=== PATIENT | female | born 1960 | race Caucasian/White ===

== ENCOUNTER → 2016-05-28 | Outpatient (CLI) | payer OTHER ==
[~2016-05-28] VITALS: Ht 188 cm; Wt 104.3 kg
[~2016-05-28] MED LIST: ALLEGRA ALLERG180 MG PO; ATROVENT HFA14 GM NASAL; CENTRUM SILVER1 EAC4 PO; ELIQUIS2.5 MG PO; ESTRADIOL 1 MG T1 M1 PO; FISH OIL 1,001000 M2 PO; HYDROCODONE-AP1 EAC6 PO; LISINOPRIL10 MG PO; MS CONTIN15 MG PO; NEXIUM40 MG PO; NORCO 10-325 T1 EACH PO; RITALIN10 MG PO; SERTRALINE HCL100 MG PO; VOLTAREN GEL 1100 G2 TOP
--- NOTE | ~2016-05-28 | CATHLAB ---
[facility] [employer] [place] [address] INVASIVE PROCEDURE REPORT Name: JOSEPHINE BELTRAN Room #: REG [facility]#: [id number] Admission: 05/28/16 Attend Phys: Leroy Lopes Discharge: Date of : 56 Date of Service: 05/28/16 2047 Report #: [id number] THIS REPORT FOR: //name// CC: Leroy Ayala DATE OF SERVICE: 05/28/2016 PROCEDURES: 1. Left heart catheterization. 2. Selective left and right coronary angiography. 3. Measurement of left ventricular end diastolic pressure. 4. Supervision of conscious sedation. LENDING ADVISOR: Leroy Fernandes MD INDICATION: This is a 56-year-old female patient with irregular heartbeat and abnormal noninvasive perfusion scanning suspicious for ischemia. BRIEF DESCRIPTION OF PROCEDURE: After informed consent was obtained, the patient was brought to the cardiac catheterization laboratory in stable condition. The patient's right groin was prepped and draped in the usual sterile manner after which lidocaine was then instilled. Utilizing a modified Seldinger technique, the right femoral artery was then accessed. Under fluoroscopic visualization using selective coronary catheters, the right and left coronaries were opacified and visualized. The left ventriculogram was likewise imaged per standard protocol with EDP being measured. Subsequent to this, the sheath was removed, hemostasis achieved. The patient tolerated the procedure well. There were no complications. FINDINGS: 1. HEMODYNAMICS: A. Aortic pressure 152/86. B. Left ventricular end diastolic pressures 20 to 24. 2. FLUOROSCOPY: Under fluoroscopic visualization, there was some calcific plaquing along the epicardial coronary arteries. No significant plaquing on the valvular or intramyocardial structures of the heart. 3. ANGIOGRAPHY: This is a right coronary dominant system. A. Left main is of normal origin and caliber, bifurcates to left anterior descending. The left circumflex is free of high grade disease. B. Left anterior descending: This is a small caliber type 1 vessel which has small caliber, courses in the anterior interventricular sulcus giving rise to a small diagonal and septal perforators is free of high grade disease as it terminates well above the apex of the anterior wall. [facility] [address] [place] [address] INVASIVE PROCEDURE REPORT Name: JOSEPHINE BELTRAN Room #: REG [facility]#: [id number] Admission: 05/28/16 Attend Phys: Leroy Lopes Discharge: Date of : 56 Date of Service: 05/28/162046 Report #: [id number] C. Left circumflex is of moderate to large caliber vessel, which courses anterior and laterally towards the apex and terminates in the apical region. It is free of high-grade disease. D. Right coronary artery: This is a large caliber vessel, courses posteriorly, giving rise to posterior descending and posterolateral wall. It is free of significant high-grade disease and has only luminal irregularities. IMPRESSION: 1. Essentially normal coronary arteries. 2. Normal hemodynamics. <ELECTRONICALLY SIGNED> By: Leroy Fernandes MD 05/29/16 1133 2047 0146 Leroy Fernandes MD /nt
[2016-05-28 08:27] LABS: HEMATOCRIT 38.8 % (37.0-47.0); HEMOGLOBIN 12.7 gm/dL (12.0-15.0); MCH 28.2 pg (26.0-34.0); MCHC 32.8 % (28.0-37.0); MCV 85.8 fL (80.0-100.0); RBC 4.52 mil/uL (4.20-5.00); RDW 13.9 % (10.5-14.5); WBC 4.8 thou/uL (4.0-11.0)
[2016-05-28 08:34] VITALS: BP 118/76
[2016-05-28 08:44] LABS: CALCIUM 9.2 mg/dL (8.5-10.1); CREATININE 1.5 mg/dL (0.6-1.3); POTASSIUM 4.4 mmol/L (3.5-5.1)
== END ==
LOC: CATH 07:49
PROVIDERS: Internal Medicine
DX: I34.1 Nonrheumatic mitral (valve) prolapse (principal); I10 Essential (primary) hypertension; K21.9 Gastro-esophageal reflux disease without esophagitis; F32.9 Major depressive disorder, single episode, unspecified; Z85.828 Personal history of other malignant neoplasm of skin; Z87.891 Personal history of nicotine dependence

== ENCOUNTER 2017-02-16 01:12 | Inpatient (IN) | payer OTHER ==
[2017-02-05 10:58] LABS: URINE BILIRUBIN NEGATIVE (Negative); URINE BLOOD NEGATIVE (Negative); URINE COLOR YELLOW; URINE GLUCOSE-RANDOM* NEGATIVE (Negative); URINE KETONES NEGATIVE (Negative); URINE LEUKOCYTES-REFLEX NEGATIVE (Negative); URINE PROTEIN (DIPSTICK) NEGATIVE (Negative); URINE SPECIFIC GRAVITY <= 1.005 (1.003-1.035); URINE UROBILINOGEN 0.2 E.U./dl (0.2-1.0)
[2017-02-05 11:17] LABS: HEMATOCRIT 36.4 % (37.0-47.0); HEMOGLOBIN 12.2 gm/dL (12.0-15.0); MCH 29.3 pg (26.0-34.0); MCHC 33.5 g/dL (28.0-37.0); MCV 87.5 fL (80.0-100.0); RBC 4.17 mil/uL (4.20-5.00); RDW 13.8 % (10.5-14.5); WBC 5.7 thou/uL (4.0-11.0)
[2017-02-05 11:20] LABS: ALBUMIN 3.8 g/dL (3.4-5.0); CALCIUM 8.8 mg/dL (8.5-10.1); CREATININE 1.6 mg/dL (0.6-1.0); POTASSIUM 4.7 mmol/L (3.5-5.1)
[2017-02-05 11:41] LABS: PROTIME 9.7 Seconds (9.3-11.4)
[~2017-02-16] VITALS: Ht 188 cm; Wt 119.3 kg
--- NOTE | ~2017-02-16 | O ---
[facility] [place] [address] OPERATIVE REPORT Name: JOSEPHINE BELTRAN Room #: 404-P ADM IN M.R.#: [id number] Admission: 02/16/17 Attend Phys: Pratik Moseley MD Discharge: Date of : 56 Report #: [id number] THIS REPORT FOR: //name// CC: Bhanu Moseley DATE OF SERVICE: 02/16/2017 PREOPERATIVE DIAGNOSIS: Right knee osteoarthritis. POSTOPERATIVE DIAGNOSIS: Right knee osteoarthritis. PROCEDURE: Right total knee arthroplasty. SURGEON: Pratik Moseley MD. WINDOW SHADE CLOTH SEWER: Dyan Wakefield PA-C. There is need of extensive retraction and positioning of the leg intraoperatively and this was afforded to me by my assistant media planner. ANESTHESIA: LMA with an adductor canal block. IMPLANTS: [employer]hew size 7 Legion Oxinium posterior stabilized femur, size 5 tibia, size 11 polyethylene and size 32 patella. TOURNIQUET TIME: 69 minutes. ESTIMATED BLOOD LOSS: 25 mL. COMPLICATIONS: None. SPECIMENS: None. CONDITION UPON LEAVING THE OPERATING ROOM: Stable. INDICATIONS FOR PROCEDURE: The patient is a 57-year-old female with severe right knee osteoarthritis. She had failed conservative treatment for this and after discussion with her, she elected for right total knee arthroplasty. DESCRIPTION OF PROCEDURE: Risks, benefits, alternatives, complications were discussed in detail with the patient including but not limited to risk of anesthesia, risk of damage to nerves, arteries, blood vessels, risk for infection, bleeding, risk for continued knee pain and need for reoperation. Informed consent was obtained from the patient. Right knee was appropriately marked in the preoperative holding area. Adductor canal block was placed by Anesthesia. IV clindamycin was given for preoperative antibiotics. She was [address] [address] OPERATIVE REPORT Name: JOSEPHINE BELTRAN Ann Room #: 404-P [facility] IN [facility]#: [id number] Admission: 02/16/17 Attend Phys: Pratik Moseley MD Discharge: Date of : 56 Report #: [id number] brought to the operating room and placed in supine position on operating room table. LMA anesthesia was induced without complication. Tourniquet was placed on the right thigh. Right lower extremity was prepped and draped in normal sterile fashion. Timeout was performed properly identifying the patient and procedure as well as the instrumentation and implants. All in the operating room were in agreement. Right lower extremity was exsanguinated. Tourniquet was inflated. Tourniquet time was 69 minutes. Standard midline approach to the knee was made with 10 blade through the skin. Dissection was taken down sharply to the fascia and deep flaps were developed medially and laterally. Fresh 10 blade was used to make a medial parapatellar arthrotomy and the knee was inspected and there was extensive tricompartmental osteoarthritic change. Anterior horns of the meniscus were removed sharply. The knee was flexed. ACL and PCL were removed sharply. Drill was used to gain access to the canal of the femur and distal femoral cutting block was pinned in place. Distal femoral cut was made. The femur was sized, found to be a size 7. A size 7 four-in-one cutting block was placed. Anterior, posterior and chamfer cuts were made. After this, the knee was hyperflexed and the tibia was subluxed. The drill was used to gain access to the canal of the tibia and tibial resection was based off the lateral plateau. Tibial resection was made. Posterior osteophytes removed from the femur. Flexion and extension gaps were checked and found to be tight in extension when compared to flexion and 2 mm of additional distal femur were taken and chamfer cuts were redone. After this, the knee was balanced well at a size 11 poly thickness. Tibia was sized, found to be a size 5. A size 5 tibial trial was placed, size 7 femur was placed and the box cut was made. The post was placed and a size 11 trial poly was placed. Knee was taken through range of motion, found to be stable, found to have good balance in flexion and extension both medially and laterally. A 9 mm was taken off the posterior surface of the patella and a size 32 patellar trial button was placed. Knee was taken through range of motion, found to be stable, found to have good balance in flexion and extension. After this, all trial components were removed. Bony ends were thoroughly irrigated with normal saline. A final size 5 tibia, size 7 Legion Oxinium posterior stabilized femur and a size 32 patella were cemented in place using standard cementation techniques. While the cement cured, a periarticular injection consisting of morphine, ropivacaine, epinephrine and Toradol was placed around the knee joint. After the cement cured, tourniquet was deflated. Knee was thoroughly irrigated with normal saline. Hemostasis was obtained with Bovie cautery. A gram of vancomycin was placed deep in the knee joint. The fascia was closed with 0 Vicryl, skin was closed with 2-0 Vicryl and 3-0 Monocryl and Dermabond. Dermabond dressing of ELLEN wound dressing was applied. The patient tolerated this procedure well and went to the recovery room under care of anesthesia postoperatively. <ELECTRONICALLY SIGNED> By: Pratik Moseley MD 02/17/17 0721 1709 1734 Pratik Moseley MD /katie
[~2017-02-16 01:12] MED LIST changes: +TOPROL XL25 MG PO
[2017-02-16 16:27] VITALS: BP 142/92
[2017-02-16 19:00] VITALS: BP 153/85
[2017-02-16 19:30] VITALS: BP 131/69
[2017-02-16 20:00] VITALS: BP 129/66
[2017-02-16 20:30] VITALS: BP 138/71
[2017-02-16 21:00] VITALS: BP 153/73
[2017-02-17] VITALS (7 sets, daily range): BP systolic 112–132; BP diastolic 63–68
[2017-02-17 06:34] LABS: HEMATOCRIT 34.4 % (37.0-47.0); HEMOGLOBIN 11.3 gm/dL (12.0-15.0); MCH 29.3 pg (26.0-34.0); MCHC 32.9 g/dL (28.0-37.0); MCV 89.1 fL (80.0-100.0); RBC 3.86 mil/uL (4.20-5.00); RDW 13.6 % (10.5-14.5); WBC 8.4 thou/uL (4.0-11.0)
[2017-02-17] MEDS ORDERED: HYDROCODON-ACE1 EAC7 PO (09:58)
[2017-02-17] MEDS ORDERED: NEURONTIN 300300 M1 PO (09:59)
[2017-02-17] MEDS ORDERED: MS CONTIN15 MG PO (09:59)
[2017-02-17] MEDS ORDERED: CVS BUFFERED A325 MG PO (10:00)
[2017-02-17] MEDS ORDERED: ELIQUIS2.5 MG PO (11:55)
== END 2017-02-17 13:37 | disposition home health service (06) | DRG 470 ==
LOC: 4N 01:12 → TBA 01:12 → PRE 07:02 → 4N 19:07 → ENTRNSPT 02-17 13:29 → EDTRNSPTSTS 02-17 13:32 → 4N 02-17 13:37
PROVIDERS: Orthopaedic Surgery
PROC: 3E0T3BZ Introduction of Anesthetic Agent into Peripheral Nerves and Plexi, Percutaneous Approach (ICD-10-PCS; principal; 2017-02-16)
PROC: 0SRC0J9 Replacement of Right Knee Joint with Synthetic Substitute, Cemented, Open Approach (ICD-10-PCS; principal; 2017-02-16)
DX: M17.11 Unilateral primary osteoarthritis, right knee (principal); Z88.1 Allergy status to other antibiotic agents; Z88.8 Allergy status to other drugs, medicaments and biological substances; Z88.2 Allergy status to sulfonamides
CPT/HCPCS: 10790; 50010; 50101; 50415; 50954; 51130; 51225; 51771; 53000; 53078; 53365; 54118; 56527; 56528; 57095; 62110; 62900; 70005